=== PATIENT | female | born 1965 | race Asian ===

== ENCOUNTER 2020-06-18 09:37 | Emergency (ER) | payer BC ==
[~2020-06-18] VITALS: Ht 152.4 cm; Wt 52.3 kg
[2020-06-18 09:44] VITALS: Ht 152.4 cm; Wt 52.3 kg
[2020-06-18] MEDS ORDERED: ENTOCORT EC3 MG PO (09:46)
[2020-06-18 09:57] LABS: BASOPHILS 0.4 % (0-2); EOSINOPHILS 0.7 % (0-7); HEMATOCRIT 37.5 % (36.0-48.0); HEMOGLOBIN 12.2 g/dL (12-16); IMMATURE GRANULOCYTES 0.4 % (0-5); LYMPHOCYTE ABS# 0.75 10x3/uL (1.18-3.74); LYMPHOCYTES 9.1 % (15-50); MCH 27.7 pg (26.0-34.0); MCHC 32.5 g/dL (31.0-37.0); NEUTROPHIL ABS# 7.08 10x3/uL (1.56-6.13); NEUTROPHILS 85.4 % (40-80); PLATELET COUNT 263 10x3/uL (130-400); RBC 4.41 10x6/uL (4.00-5.40); RDW 13.2 % (11.5-14.5); WBC 8.3 10x3/uL (4.8-10.8)
[2020-06-18 10:04] LABS: CALC OSMOLALITY 273 mosm/kg (275-300); CALCIUM 9.1 mg/dL (8.5-10.1); CARBON DIOXIDE 28.6 mmol/L (21.0-32.0); CHLORIDE - SERUM 100 mmol/L (98-107); CREATININE - SERUM 0.8 mg/dL (0.6-1.3); GLUCOSE 133 mg/dL (74-106); POTASSIUM - SERUM 3.5 mmol/L (3.5-5.1); SODIUM 137 mmol/L (136-145); UREA NITROGEN 8 mg/dL (7-18); eGFR NON AFRICAN AMERICAN 78 mL/min (90-120)
[2020-06-18 10:05] LABS: INR 1.1 (0.85-1.17); PROTIME 13.2 SECONDS (11.6-15.0)
[2020-06-18 10:20] LABS: ALBUMIN 3.6 g/dL (3.4-5.0); ALKALINE PHOSPHATASE 97 U/L (30-120); ALT (SGPT) 16 U/L (10-68); BILIRUBIN - TOTAL 0.46 mg/dL (0.2-1.3); CKMB 0.4 U/L (0.0-3.6); CREATINE KINASE 63 UL (21-215); MAGNESIUM - SERUM 2.1 mg/dL (1.8-2.4); PROTEIN - SERUM 8.4 g/dL (6.4-8.2)
[2020-06-18 10:21] LABS: TROPONIN-I < 0.017 ng/mL (0.000-0.060)
[2020-06-18 10:24] VITALS: BP 121/54
[2020-06-18 11:34] LABS: AMYLASE - SERUM 39 U/L (25-115); LIPASE 103 U/L (73-393)
[2020-06-18] MEDS ORDERED: ACETAMINOPHEN500 M1 PO (13:31)
[2020-06-18] MEDS ORDERED: CYCLOBENZAPRINE10 MG PO (13:31)
[2020-06-18] MEDS ORDERED: IBUPROFEN800 MG PO (13:31)
== END 2020-06-18 13:45 | disposition home or self-care (01) ==
LOC: D.ER 09:37
PROVIDERS: Family Medicine
DX: R07.89 Other chest pain (principal); M94.0 Chondrocostal junction syndrome [Tietze]; M79.10 Myalgia, unspecified site